=== PATIENT | male | born 1950 | race Caucasian/White ===

== ENCOUNTER 2018-06-06 09:27 | Outpatient (CLI) | payer MEDICARE ==
[~2018-06-06] VITALS: Ht 177.8 cm; Wt 97.7 kg
[2018-06-06 09:53] LABS: BASOPHILS 0.3 % (0-2); EOSINOPHILS 6.6 % (0-7); HEMATOCRIT 37.4 % (42.0-54.0); IMMATURE GRANULOCYTES 0.3 % (0-5); LYMPHOCYTES 24.5 % (15-50); MCH 35.6 pg (26.0-34.0); MCHC 34.8 g/dL (31.0-37.0); MCV 102.5 fL (80.0-100.0); MONOCYTES 13.5 % (2-11); NEUTROPHILS 54.8 % (40-80); PLATELET COUNT 95 10x3/uL (130-400); RBC 3.65 10x6/uL (4.20-6.10); RDW 13.7 % (11.5-14.5); WBC 3.5 10x3/uL (4.8-10.8)
[2018-06-06] MEDS ORDERED: FUROSEMIDE20 MG PO (10:13)
[2018-06-06 10:14] LABS: ANION GAP 11.2 mmol/L (8-16); CREATININE - SERUM 1.2 mg/dL (0.6-1.3); POTASSIUM - SERUM 4.2 mmol/L (3.5-5.1)
[2018-06-06] MEDS ORDERED: KLOR-CON 88 MEQ PO (10:14)
[2018-06-06 10:17] LABS: APTT 37.2 SECONDS (22.8-39.4); INR 1.3 (0.85-1.17); PROTIME 15.7 SECONDS (11.6-15.0)
[2018-06-06 10:22] VITALS: Ht 177.8 cm; Wt 97.7 kg
== END 2018-06-06 13:10 | disposition home or self-care (01) ==
LOC: D.SP 09:27 → D.RAD 12:00 → D.SP 13:10
PROVIDERS: General Practice
DX: Z53.29 Procedure and treatment not carried out because of patient's decision for other reasons (principal); Z01.812 Encounter for preprocedural laboratory examination